=== PATIENT | male | born 1995 | race Hispanic/Latino ===

== ENCOUNTER 2017-03-11 07:01 | Emergency (ER) | payer OTHER, SELFPAY ==
[2017-03-11] MEDS ORDERED: Lidocaine Viscous Sol 2% 15 ml UD Cup ONE (07:53)
== END 2017-03-11 08:14 | disposition home or self-care (01) ==
LOC: ERS 07:01
DX: T16.2XXA Foreign body in left ear, initial encounter (principal); G43.909 Migraine, unspecified, not intractable, without status migrainosus; J45.909 Unspecified asthma, uncomplicated; F31.9 Bipolar disorder, unspecified; F90.9 Attention-deficit hyperactivity disorder, unspecified type; F17.210 Nicotine dependence, cigarettes, uncomplicated
CPT/HCPCS: 69200

== ENCOUNTER 2017-03-17 14:34 | Emergency (ER) | payer SELFPAY ==
[2017-03-17 15:52] LABS: Bilirubin Negative (Negative); Blood, Urine Negative (Negative); Glucose, Urine (Dipstick) Negative (Negative); Ketone, Urine Negative (Negative); Nitrite Negative (Negative); Protein, Urine (Dipstick) Trace mg/dL (Neg-Trace)
[2017-03-17 15:55] LABS: Bacteria/HPF None Seen HPF (None Seen); Hyaline Casts/LPF 0-3 HYALINE CAST LPF (0-3 Hyaline); RBC/HPF 0-3 HPF (0-3); Squamous Epithelial None Seen HPF (0-3); WBC/HPF None Seen HPF (0-3)
--- NOTE | 2017-03-17 16:18 | ULT ---
SCROTAL ULTRASOUND: 03/17/17 INDICATION: Scrotal pain. TECHNIQUE: Gupta scale, color flow, and doppler vascular duplex with spectral analysis was performed of the scro baltazar. FINDINGS: The right testicle measures 4.9 x 2.4 x 3.5 cm. The left testicle measures 5.0 x 2.1 x 3.1 cm. The t esticles are slightly heterogeneous in appearance. There is increased vascular flow to both testicle s. The right epididymis is slightly hypertrophied with increased vascular flow. There is slight increased vascular flow to the left testicle with small left hydrocele. There is a m ild sized left sided varicocele present. IMPRESSION: 1. Slight increased vascular flow to both testicles and right epididymis is suspicious for poss ible epididymo-orchitis. Recommend correlation with the clinical exam. 2. No intratesticular mass or torsion demonstrated. 3. Small left hydrocele and left sided varicocele incidentally noted. POS: [facility]
[2017-03-17] MEDS ORDERED: Ketorolac Tromethamine 60 MG/2 ML VIAL ONE (17:28)
[2017-03-17] MEDS ORDERED: Azithromycin 250 MG TAB ONE (17:28)
[2017-03-17] MEDS ORDERED: cefTRIAXone\\ROCEPHIN 250 MG VIAL ONE (17:28)
[2017-03-17] MEDS ORDERED: Lidocaine 1% (PF) 30 ML VIAL ONE (17:29)
[2017-03-17] MEDS ORDERED: Lidocaine 1% PF 5 ML VIAL ONE (17:30)
== END 2017-03-17 18:08 | disposition home or self-care (01) ==
LOC: ERS 14:34
DX: N45.1 Epididymitis (principal); G43.909 Migraine, unspecified, not intractable, without status migrainosus; J45.909 Unspecified asthma, uncomplicated; F31.9 Bipolar disorder, unspecified; F90.9 Attention-deficit hyperactivity disorder, unspecified type; F17.210 Nicotine dependence, cigarettes, uncomplicated
CPT/HCPCS: 76870; 81003; 81015; 93976; 96372; J0696; J1885; J2001

== ENCOUNTER 2017-07-21 18:34 | Emergency (ER) | payer SELFPAY | END 2017-07-21 19:49 | disposition home or self-care (01) | LOC: ERS 18:34 | DX: J11.1 Influenza due to unidentified influenza virus with other respiratory manifestations (principal); F31.9 Bipolar disorder, unspecified; J45.909 Unspecified asthma, uncomplicated; F90.9 Attention-deficit hyperactivity disorder, unspecified type; F17.210 Nicotine dependence, cigarettes, uncomplicated | CPT/HCPCS: 99283 ==

== ENCOUNTER 2017-12-18 00:57 | Emergency (ER) | payer SELFPAY ==
[2017-12-18 01:37] LABS: Hemoglobin 14.9 g/dL (14.0-18.0); Mean Corpuscular HGB CONC 36.5 g/dL (32.0-36.0); Mean Corpuscular Hemoglobin 33.6 pg (25.0-35.0); Mean Platelet Volume 7.2 fL (7.4-10.4); Platelet Count 272 thou/uL (130-400); RBC Distribution Width 10.7 % (11.5-14.5); Red Blood Cell (RBC) Count 4.44 mill/uL (4.00-5.20); White Blood Cell (WBC) Count 5.6 thou/uL (4.8-10.8)
[2017-12-18 01:50] LABS: ALT (SGPT) 40 U/L (8-55); AST (SGOT) 37 U/L (5-34); Acetaminophen Less than 6.0 mcg/mL (10.0-30.0); Albumin 4.3 g/dL (3.5-5.0); Alcohol 179 mg/dL (Less than 10); Alkaline Phosphatase 55 U/L (Less than 750); Anion Gap 14 mmol/L (10-20); BUN (Urea Nitrogen) 7 mg/dL (8.9-20.6); Bilirubin, Total 0.7 mg/dL (0.2-1.2); CK (CPK) 330 U/L (30-200); Calc. Creatinine Clearance 0 mL/min (70-130); Calcium 9.2 mg/dL (7.8-10.44); Carbon Dioxide 22 mmol/L (22-29); Chloride 104 mmol/L (98-107); Estimated GFR-MDRD Greater than 90; Globulin 2.3 g/dL (2.4-3.5); Glucose 126 mg/dL (70-105); Potassium 3.3 mmol/L (3.5-5.1); Protein, Total 6.6 g/dL (6.0-8.3); Salicylate Less than 8.0 mg/dL (15.0-30.0); Sodium 137 mmol/L (136-145)
[2017-12-18 02:13] LABS: Band 4 % (5-11); Eosinophils 3 % (0-10); Lymphocytes 48 % (28-48); MDiff Complete? YES; Monocytes 12 % (0-4); Neutrophil 33 % (31-61)
[2017-12-18 03:16] LABS: Bilirubin Negative (Negative); Blood, Urine Negative (Negative); Clarity CLEAR (Clear); Glucose, Urine (Dipstick) Negative (Negative); Leukocyte Negative (Negative); Nitrite Negative (Negative); Protein, Urine (Dipstick) Negative (Neg-Trace); Specific Gravity, Urine 1.002 (1.002-1.036); Urobilinogen 0.2 mg/dL (0.2-1.0); pH, Urine 6.5 (5.0-9.0)
[2017-12-18 03:30] LABS: Amphetamine Not Detected (NotDetected); Barbiturates Screen Not Detected (NotDetected); Benzodiazepine Screen Not Detected (NotDetected); Cocaine Metabolite Screen Not Detected (NotDetected); Medtox Control Line Valid? VALID (VALID); Medtox Reader # READER 4; Methadone Not Detected (NotDetected); Methamphetamine Not Detected (NotDetected); Opiate Screen Not Detected (NotDetected); Oxycodone Screen Not Detected (NotDetected); Phencyclidine (PCP) Not Detected (NotDetected); THC/Cannabinoid Screen Not Detected (NotDetected); Tricyclic Screen Not Detected (NotDetected)
== END 2017-12-18 09:05 | disposition home or self-care (01) ==
LOC: ERS 00:57
DX: F10.129 Alcohol abuse with intoxication, unspecified (principal); F32.9 Major depressive disorder, single episode, unspecified; J45.909 Unspecified asthma, uncomplicated; G43.909 Migraine, unspecified, not intractable, without status migrainosus; F17.210 Nicotine dependence, cigarettes, uncomplicated; Y90.4 Blood alcohol level of 80-99 mg/100 ml
CPT/HCPCS: 36415; 80053; 80306; 80307; 81003; 82550; 84443; 85025; 93005

== ENCOUNTER 2018-06-04 12:31 | Emergency (ER) | payer SELFPAY ==
[2018-06-04] MEDS ORDERED: Adacel (T-DAP) 0.5 ML SYRINGE ONE (13:37)
--- NOTE | 2018-06-04 14:09 | RAD ---
3 VIEWS LEFT MIDDLE FINGER: Date: 06/04/18 HISTORY: Injury, trauma, pain. FINDINGS: There is a soft tissue injury involving the soft tissues adjacent to the distal aspect of the third d istal phalanx. No associated fracture/dislocation or radiopaque foreign body. IMPRESSION: Laceration involving the distal aspect of the third finger with no associated fracture or dislocation . POS: [facility]
[2018-06-04] MEDS ORDERED: Bupivacaine 0.25% 10 ML VIAL ONE (14:30)
[2018-06-04] MEDS ORDERED: Lidocaine 1% (PF) 30 ML VIAL ONE (14:30)
== END 2018-06-04 15:22 | disposition home or self-care (01) ==
LOC: ERS 12:31
DX: S61.213A Laceration without foreign body of left middle finger without damage to nail, initial encounter (principal); Z23 Encounter for immunization; G43.909 Migraine, unspecified, not intractable, without status migrainosus; J45.909 Unspecified asthma, uncomplicated; F31.9 Bipolar disorder, unspecified; F90.9 Attention-deficit hyperactivity disorder, unspecified type; F17.210 Nicotine dependence, cigarettes, uncomplicated; W26.8XXA Contact with other sharp object(s), not elsewhere classified, initial encounter
CPT/HCPCS: 12002; 90471; 90715; J2001; S0020

== ENCOUNTER 2018-11-19 00:47 | Emergency (ER) | payer SELFPAY ==
--- NOTE | 2018-11-19 07:38 | RAD ---
XR Hand Rt 3 View STANDARD History: [Injury.] Comparison: radiograph 2017 Findings: Tendon suture anchor of the distal phalanx small finger. No acute displaced fracture or mal alignment. Impression: No acute fracture or malalignment.
== END 2018-11-19 01:25 | disposition home or self-care (01) ==
LOC: SCSER 00:47
DX: S60.221A Contusion of right hand, initial encounter (principal); F90.9 Attention-deficit hyperactivity disorder, unspecified type; G43.909 Migraine, unspecified, not intractable, without status migrainosus; J45.909 Unspecified asthma, uncomplicated; F17.210 Nicotine dependence, cigarettes, uncomplicated; F31.9 Bipolar disorder, unspecified; W22.09XA Striking against other stationary object, initial encounter

== ENCOUNTER 2019-06-12 13:19 | Emergency (ER) | payer SELFPAY ==
[2019-06-12] MEDS ORDERED: HYDROcodone/Acetaminophen 5/325 mg Tablet ONE (14:43)
[2019-06-12] MEDS ORDERED: diphenhydrAMINE 25 MG CAP ONE (14:43)
--- NOTE | 2019-06-12 15:18 | RAD ---
LEFT HAND THREE VIEWS: HISTORY: Left hand pain and swelling. FINDINGS: No bony abnormality is identified. POS: [facility]
[2019-06-12 15:22] LABS: #Basophils 0.1 thou/uL (0.0-0.2); #Monocytes 0.8 thou/uL (0.11-0.59); #Neutrophils 7.3 thou/uL (1.40-6.50); %Basophils 0.5 % (0.0-1.0); %Eosinophils 0.4 % (0.0-10.0); %Lymphocytes 19.3 % (21.0-51.0); %Monocytes 8.1 % (0.0-10.0); %Neutrophils 71.8 % (42.0-75.0); Hemoglobin 15.9 g/dL (14.0-18.0); Mean Corpuscular HGB CONC 34.5 g/dL (32.0-36.0); Mean Corpuscular Hemoglobin 31.9 pg (27.0-31.0); Mean Corpuscular Volume 92.4 fL (78.0-98.0); Mean Platelet Volume 7.6 fL (7.4-10.4); Platelet Count 303 thou/uL (130-400); RBC Distribution Width 10.9 % (11.5-14.5); Red Blood Cell (RBC) Count 4.98 mill/uL (4.70-6.10); White Blood Cell (WBC) Count 10.2 thou/uL (4.8-10.8)
== END 2019-06-12 15:44 | disposition home or self-care (01) ==
LOC: ERS 13:19
DX: L03.114 Cellulitis of left upper limb (principal); G43.909 Migraine, unspecified, not intractable, without status migrainosus; J45.909 Unspecified asthma, uncomplicated; F31.9 Bipolar disorder, unspecified; F90.9 Attention-deficit hyperactivity disorder, unspecified type; F17.210 Nicotine dependence, cigarettes, uncomplicated
CPT/HCPCS: 36415; 85025; 85652; Q0163

== ENCOUNTER 2019-06-14 10:07 | Emergency (ER) | payer SELFPAY | END 2019-06-14 11:45 | disposition home or self-care (01) | LOC: ERS 10:07 | DX: L03.012 Cellulitis of left finger (principal); G43.909 Migraine, unspecified, not intractable, without status migrainosus; J45.909 Unspecified asthma, uncomplicated; F31.9 Bipolar disorder, unspecified; F90.9 Attention-deficit hyperactivity disorder, unspecified type; F17.210 Nicotine dependence, cigarettes, uncomplicated; Z79.1 Long term (current) use of non-steroidal anti-inflammatories (NSAID); Z79.899 Other long term (current) drug therapy | CPT/HCPCS: 99283 ==

== ENCOUNTER 2019-11-29 00:14 | Emergency (ER) | payer OTHER, SELFPAY ==
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
== END 2019-11-29 01:20 | disposition home or self-care (01) ==
LOC: ERS 00:14
DX: S80.212A Abrasion, left knee, initial encounter (principal); S00.81XA Abrasion of other part of head, initial encounter; G43.909 Migraine, unspecified, not intractable, without status migrainosus; J45.909 Unspecified asthma, uncomplicated; F31.9 Bipolar disorder, unspecified; F90.9 Attention-deficit hyperactivity disorder, unspecified type; V89.2XXA Person injured in unspecified motor-vehicle accident, traffic, initial encounter

== ENCOUNTER 2021-10-16 08:14 | Emergency (ER) | payer SELFPAY ==
[2021-10-16] MEDS ORDERED: Ketorolac Tromethamine 30 MG/ML VIAL ONE (09:21)
== END 2021-10-16 09:40 | disposition home or self-care (01) ==
LOC: ERS 08:14
DX: K04.7 Periapical abscess without sinus (principal); K02.9 Dental caries, unspecified; J45.909 Unspecified asthma, uncomplicated
CPT/HCPCS: 96372; 99282; J1885